=== PATIENT | female | born 1975 | race Caucasian/White ===

== ENCOUNTER 2017-12-28 16:24 | Emergency (ER) | payer OTHER ==
[~2017-12-28] VITALS: Ht 165.1 cm; Wt 51.4 kg
[2017-12-28 16:25] VITALS: BP 126/71; PULSE 70; RESP 16; O2SAT 100
[2017-12-28 16:30] VITALS: RESP 16; O2SAT 100
[2017-12-28] MEDS ORDERED: SODIUM CHLOR 0.9% 1000 ML INJ 1,000 ML IV SCH (16:33)
--- NOTE | 2017-12-28 16:38 | PD ---
HPI Chief Complaint: Allergic/Adverse Reaction Time Seen by Provider: 16:27 Travel History International Travel<30 days: No Contact w/Intl Traveler<30days: No Traveled to known affect area: No History of Present Illness HPI 42-year-old female here for evaluation of possible allergic reaction. The patient was out running about 45 minutes to an hour prior to arrival when she was stung by something. 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 Shortly after feeling an insect bite/sting, the patient began developing a pruritic rash on her arms, chest, and back. She took 4 Benadryl and was driven to the emergency department by her father for evaluation. She complains of heaviness over the back of her neck. No tongue or lip swelling. No respiratory difficulty. No nausea or vomiting. PFSH Social History Tobacco Use: No Allergies-Medications (Allergen,Severity, Reaction): Coded Allergies: Penicillins (Verified Allergy, Severe, 12/28/17) bee venom protein (honey bee) (Verified Allergy, Severe, 12/28/17) hornet venom (Verified Allergy, Severe, 12/28/17) pumpkin (Verified Allergy, Severe, 12/28/17) tetracycline (Verified Allergy, Severe, 12/28/17) Review of Systems Except as stated in HPI: all other systems reviewed are Neg Physical Exam Narrative GENERAL: Well-developed, well-nourished, awake, alert, no apparent distress. SKIN: Urticarial type rash on bilateral arms, bilateral axilla, upper chest, and back HEAD: Atraumatic. Normocephalic. EYES: Pupils equal and round. No scleral icterus. No injection or drainage. ENT: Mucous membranes pink and moist. No tongue or lip swelling. No drooling or stridor. NECK: Trachea midline. No JVD. CARDIOVASCULAR: Regular rate and rhythm. RESPIRATORY: No accessory muscle use. Clear to auscultation. Breath sounds equal bilaterally. GASTROINTESTINAL: Abdomen soft, non-tender, nondistended. MUSCULOSKELETAL: No obvious deformities. No clubbing. No cyanosis. No edema. NEUROLOGICAL: Awake and alert. No obvious cranial nerve deficits. Motor grossly within normal limits. Normal speech. PSYCHIATRIC: Appropriate mood and affect; insight and judgment normal. Data Data Last Documented VS Vital Signs Date Time Temp Pulse Resp B/P (MAP) Pulse Ox O2 Delivery O2 Flow Rate FiO2 12/28/17 18:10 68 16 105/65 (78) 100 12/28/17 16:30 Room Air Orders Orders Basic Metabolic Panel (Bmp) (12/28/17 16:33) Complete Blood Count With Diff (12/28/17 16:33) Ecg Monitoring (12/28/17 16:33) Iv Access Insert/Monitor (12/28/17 16:33) Oximetry (12/28/17 16:33) Methylprednisolone So Succ Inj (Solumedr (12/28/17 16:45) Famotidine Inj (Pepcid Inj) (12/28/17 16:45) Sodium Chlor 0.9% 1000 Ml Inj (Ns 1000 M (12/28/17 16:33) Sodium Chloride 0.9% Flush (Ns Flush) (12/28/17 16:45) Ed Discharge Order (12/28/17 17:50) Labs Laboratory Tests Test 12/28/17 16:45 White Blood Count 7.7 TH/MM3 Red Blood Count 4.81 MIL/MM3 Hemoglobin 15.4 GM/DL Hematocrit 45.1 % Mean Corpuscular Volume 93.8 FL Mean Corpuscular Hemoglobin 32.0 PG Mean Corpuscular Hemoglobin Concent 34.1 % Red Cell Distribution Width 12.8 % Platelet Count 304 TH/MM3 Mean Platelet Volume 8.1 FL Neutrophils (%) (Auto) 60.6 % Lymphocytes (%) (Auto) 27.3 % Monocytes (%) (Auto) 8.3 % Eosinophils (%) (Auto) 2.8 % Basophils (%) (Auto) 1.0 % Neutrophils # (Auto) 4.7 TH/MM3 Lymphocytes # (Auto) 2.1 TH/MM3 Monocytes # (Auto) 0.6 TH/MM3 Eosinophils # (Auto) 0.2 TH/MM3 Basophils # (Auto) 0.1 TH/MM3 CBC Comment DIFF FINAL Differential Comment Blood Urea Nitrogen 26 MG/DL Creatinine 0.90 MG/DL Random Glucose 87 MG/DL Calcium Level 9.0 MG/DL Sodium Level 138 MEQ/L Potassium Level 3.7 MEQ/L Chloride Level 106 MEQ/L Carbon Dioxide Level 22.8 MEQ/L Anion Gap 9 MEQ/L Estimat Glomerular Filtration Rate 69 ML/MIN MDM Medical Decision Making Medical Screen Exam Complete: Yes Emergency Medical Condition: Yes Differential Diagnosis Allergic reaction, anaphylaxis Narrative Course Vital signs reviewed. CBC is unremarkable. BMP is remarkable for BUN 26. The patient was provided 60 mg of IV Solu-Medrol and 20 mg of IV Pepcid. She had taken for Benadryl prior to arrival. On reassessment her urticarial rash has completely resolved and the patient feels significantly improved. She has an EpiPen with her. She was observed in the emergency department for 2 hours without return of symptoms. She will be discharged home and was advised on when to return to the emergency department. She verbalizes understanding and agreement with plan. Diagnosis Primary Impression: Allergic reaction Qualified Codes: T78.40XA - Allergy, unspecified, initial encounter Referrals: Primary Care Physician 3 days Additional Instructions: Follow-up with a primary care physician this week. Return to the emergency department for worsening symptoms or any other concerns. Disposition: 01 DISCHARGE HOME Condition: Stable Carlos Nolan MD Dec 28, 2017 16:38
[2017-12-28] MEDS ORDERED: methylPREDNISolone SOD SUCC 125 MG/2 ML VIAL IV PUSH ONE (16:45)
[2017-12-28] MEDS ORDERED: SODIUM CHLORIDE 0.9% FLUSH 10 ML FLUSH IV FLUSH PRN (16:45)
[2017-12-28] MEDS ORDERED: FAMOTIDINE 20 MG/2 ML VIAL IV PUSH ONE (16:45)
[2017-12-28 16:59] LABS: AUTOMATED NEUTROPHIL # 4.7 TH/MM3 (1.8-7.7); BASOPHIL # 0.1 TH/MM3 (0-0.2); EOSINOPHIL # 0.2 TH/MM3 (0-0.4); EOSINOPHIL % 2.8 % (0.0-4.0); HEMATOCRIT 45.1 % (35.0-46.0); HEMOGLOBIN 15.4 GM/DL (11.6-15.3); LYMPH % 27.3 % (9.0-44.0); LYMPHOCYTE # 2.1 TH/MM3 (1.0-4.8); MEAN CELL VOLUME 93.8 FL (80.0-100.0); MEAN CORPUSCULAR HGB CONC 34.1 % (32.0-36.0); MEAN PLATELET VOLUME 8.1 FL (7.0-11.0); MONO % 8.3 % (0.0-8.0); MONOCYTE # 0.6 TH/MM3 (0-0.9); NEUT % 60.6 % (16.0-70.0); PLATELET COUNT 304 TH/MM3 (150-450); RED BLOOD COUNT 4.81 MIL/MM3 (4.00-5.30); RED CELL DISTRIBUTION WIDTH 12.8 % (11.6-17.2); WHITE BLOOD COUNT 7.7 TH/MM3 (4.0-11.0)
[2017-12-28 17:20] LABS: BICARBONATE 22.8 MEQ/L (21.0-32.0)
[2017-12-28 17:23] LABS: CREATININE 0.9 MG/DL (0.50-1.00)
[2017-12-28 18:10] VITALS: BP 105/65
== END 2017-12-28 18:12 | disposition home or self-care (01) ==
LOC: PHED 16:24
DX: T78.40XA Allergy, unspecified, initial encounter (principal); R21 Rash and other nonspecific skin eruption; Z88.0 Allergy status to penicillin; Z88.8 Allergy status to other drugs, medicaments and biological substances
CPT/HCPCS: 80048; 85025; 96361; 96374; 96375; 99284; J2930; J7030